=== PATIENT | male | born 1945 | race Caucasian/White ===

== ENCOUNTER 2018-03-08 21:30 | Inpatient (IN) | payer MEDICARE, BC ==
[~2018-03-08] VITALS: Ht 177.8 cm; Wt 75.4 kg
[2018-03-08] MEDS ORDERED: ACETAMINOPHEN 325 MG TAB ONE (22:58)
[2018-03-08 23:06] LABS: BASOPHILS % (AUTO) 0.5 % (0.0-5.0); EOSINOPHILS % (AUTO) 5.9 % (0.0-8.0); HEMATOCRIT 34.9 % (42-54); LYMPHOCYTES % (AUTO) 8.8 % (21.0-51.0); MEAN CORPUSCULAR HEMOGLOBIN 27.9 pg (27.0-33.0); MEAN CORPUSCULAR HGB CONC 33.1 g/dL (32.0-36.0); MEAN CORPUSCULAR VOLUME 84.3 fL (79-99); MONOCYTES % (AUTO) 9.6 % (3.0-13.0); NEUTROPHILS % (AUTO) 75.2 % (40.0-77.0); PLATELET COUNT (AUTO) 356 K/uL (130-400); RED BLOOD CELL COUNT(AUTO) 4.14 MIL/uL (4.50-6.20); RED CELL DISTRIBUTION WIDTH 13.6 % (11.0-15.5); WHITE BLOOD COUNT (AUTO) 12.7 K/uL (4.8-10.8)
[2018-03-08 23:11] LABS: CREATININE 1.2 mg/dL (0.5-1.5); POTASSIUM 3.6 mmol/L (3.5-5.1)
[2018-03-08 23:16] LABS: ALBUMIN 2.3 g/dL (3.5-5.0); BILIRUBIN,TOTAL 0.3 mg/dL (0.2-1.0); TOTAL PROTEIN, SERUM 6.4 g/dL (6.0-8.3)
[2018-03-08 23:41] LABS: APPEARANCE,URINE Cloudy (CLEAR); BILIRUBIN,URINE Small (NEGATIVE); COLOR,URINE Dark Yellow (YELLOW); GLUCOSE, URINE (UA) Negative (NEGATIVE); KETONES,URINE Trace mg/dL (NEGATIVE); LEUKOCYTE ESTERASE ,URINE Negative (NEGATIVE); NITRATE,URINE Negative (NEGATIVE); OCCULT BLOOD,URINE Negative (NEGATIVE); PROTEIN,URINE POS 1+ (NEGATIVE)
[2018-03-08 23:53] LABS: BACTERIA,URINE Rare /HPF (None Seen); MUCUS,URINE Many LPF (None Seen); SQUAMOUS EPITHELIAL CELL,UR Few /HPF (0-2); WBC,URINE 0-1 /HPF (0-1)
[2018-03-09] MEDS ORDERED: ASPIRIN 325 MG TABLET ONE (06:29)
[2018-03-09 08:57] VITALS: BP 129/73
[2018-03-09] MEDS ORDERED: HYDRALAZINE HCL 20 MG/ML VIAL IM PRN (09:00)
[2018-03-09] MEDS ORDERED: ONDANSETRON HCL 4 MG/2 ML VIAL IVP PRN (09:00)
[2018-03-09] MEDS ORDERED: ACETAMINOPHEN 325 MG TAB PO PRN ×2 (09:00→18:15)
[2018-03-09] MEDS ORDERED: AMLO5TAB2 PO (09:33)
[2018-03-09] MEDS ORDERED: LEVO100T4 PO (09:33)
[2018-03-09] MEDS ORDERED: ROSU20TA30 PO (09:33)
[2018-03-09] MEDS ORDERED: CHOL100044 PO (09:33)
[2018-03-09] MEDS ORDERED: ASPI-1197 PO (09:33)
[2018-03-09 11:00] VITALS: BP 119/73
[2018-03-09 16:38] VITALS: BP 131/74
[2018-03-09] MEDS ORDERED: ONDANSETRON HCL MDV 20ML 2 MG/ML VIAL IVP PRN (18:15)
[2018-03-09] MEDS ORDERED: HYDRALAZINE HCL 20 MG/ML VIAL IV PRN (18:15)
[2018-03-09] MEDS ORDERED: ATORVASTATIN CALCIUM 40 MG TABLET ONE (19:23)
[2018-03-09] MEDS: ATORVASTATIN CALCIUM 40 MG TABLET PO SCH (19:24)
[2018-03-09 19:25] VITALS: BP 125/84
[2018-03-09 19:27] VITALS: BP 121/63
[2018-03-10 00:08] VITALS: BP 120/65
[2018-03-10 04:25] LABS: HEMATOCRIT 31.5 % (42-54); MEAN CORPUSCULAR HEMOGLOBIN 28.3 pg (27.0-33.0); MEAN CORPUSCULAR VOLUME 83.1 fL (79-99); PLATELET COUNT (AUTO) 346 K/uL (130-400); RED BLOOD CELL COUNT(AUTO) 3.79 MIL/uL (4.50-6.20); RED CELL DISTRIBUTION WIDTH 13.2 % (11.0-15.5); WHITE BLOOD COUNT (AUTO) 11.6 K/uL (4.8-10.8)
[2018-03-10 04:35] LABS: CREATININE 1.1 mg/dL (0.5-1.5); POTASSIUM 3.6 mmol/L (3.5-5.1)
[2018-03-10 05:09] VITALS: BP 99/51
[2018-03-10] MEDS: LEVOTHYROXINE 100 MCG TABLET PO SCH (06:10)
[2018-03-10] MEDS: ASPIRIN 81MG TAB.CHEW PO SCH (07:38)
[2018-03-10] MEDS: FAMOTIDINE 20MG TAB 20 MG TAB PO SCH (07:38)
[2018-03-10] MEDS: AMLODIPINE BESYLATE 5 MG TAB PO SCH (07:39)
[2018-03-10 07:40] VITALS: BP 101/50
[2018-03-10] MEDS: Cholecalciferol (Vitamin D3) 1,000 UNIT PO SCH (09:00)
[2018-03-10 11:39] VITALS: BP 125/68
[2018-03-10 16:45] VITALS: BP 124/59
[2018-03-10 19:00] VITALS: BP 113/58
[2018-03-10] MEDS: ATORVASTATIN CALCIUM 40 MG TABLET PO SCH (20:37)
[2018-03-11] VITALS: BP 113/59
[2018-03-11 04:00] VITALS: BP 111/57
[2018-03-11 04:37] LABS: BASOPHILS % (AUTO) 0.6 % (0.0-5.0); EOSINOPHILS % (AUTO) 7.1 % (0.0-8.0); HEMATOCRIT 32.9 % (42-54); LYMPHOCYTES % (AUTO) 8.4 % (21.0-51.0); MEAN CORPUSCULAR HEMOGLOBIN 28.9 pg (27.0-33.0); MEAN CORPUSCULAR HGB CONC 34.6 g/dL (32.0-36.0); MEAN CORPUSCULAR VOLUME 83.7 fL (79-99); MONOCYTES % (AUTO) 10.4 % (3.0-13.0); NEUTROPHILS % (AUTO) 73.5 % (40.0-77.0); PLATELET COUNT (AUTO) 346 K/uL (130-400); RED BLOOD CELL COUNT(AUTO) 3.93 MIL/uL (4.50-6.20); RED CELL DISTRIBUTION WIDTH 13.4 % (11.0-15.5); WHITE BLOOD COUNT (AUTO) 11.5 K/uL (4.8-10.8)
[2018-03-11 04:43] LABS: CREATININE 1.1 mg/dL (0.5-1.5); POTASSIUM 3.6 mmol/L (3.5-5.1)
[2018-03-11 07:25] VITALS: BP 104/61
[2018-03-11] MEDS: LEVOTHYROXINE 100 MCG TABLET PO SCH (07:30)
[2018-03-11] MEDS: AMLODIPINE BESYLATE 5 MG TAB PO SCH (09:00)
[2018-03-11] MEDS: Cholecalciferol (Vitamin D3) 1,000 UNIT PO SCH (09:00)
[2018-03-11] MEDS: ASPIRIN 81MG TAB.CHEW PO SCH (10:57)
[2018-03-11] MEDS: FAMOTIDINE 20MG TAB 20 MG TAB PO SCH (10:58)
[2018-03-11 11:14] VITALS: BP 115/71
[2018-03-11] MEDS ORDERED: CLOPIDOGREL BISULFATE 75 MG TAB PO SCH (13:00)
== END 2018-03-11 15:50 | disposition home or self-care (01) | DRG 123 ==
LOC: EDH 21:30 → EDHIP 03-09 07:16 → 2DH 03-09 09:02
PROVIDERS: ADMIT Internal Medicine Nephrology; ATTEND Internal Medicine Nephrology
DX: H53.2 Diplopia (principal); H54.62 Unqualified visual loss, left eye, normal vision right eye; I10 Essential (primary) hypertension; M19.90 Unspecified osteoarthritis, unspecified site; E03.9 Hypothyroidism, unspecified; E78.5 Hyperlipidemia, unspecified; H53.8 Other visual disturbances; M81.0 Age-related osteoporosis without current pathological fracture; Z98.42 Cataract extraction status, left eye; Z98.41 Cataract extraction status, right eye; Z87.01 Personal history of pneumonia (recurrent); Z79.2 Long term (current) use of antibiotics; Z82.49 Family history of ischemic heart disease and other diseases of the circulatory system; Z83.3 Family history of diabetes mellitus; Z83.49 Family history of other endocrine, nutritional and metabolic diseases
CPT/HCPCS: 36415; 70450; 70544; 70547; 70551; 71046; 80048; 80053; 80061; 81001; 85025; 85027; 86757; 93005; 93306; 93880

== ENCOUNTER → 2019-06-27 | Outpatient (CLI) | payer MEDICARE ==
[~2019-06-27] MED LIST: AMLO5TAB9 PO; ASPI-1197 PO; CHOL100044 PO; CLOP75TA14 PO; LEVO100T4 PO; ROSU20TA31 PO
== END | disposition home or self-care (01) ==
LOC: RAH 14:16
PROVIDERS: ATTEND Orthopaedic Surgery
DX: M51.36 Other intervertebral disc degeneration, lumbar region (principal)
CPT/HCPCS: 72148

== ENCOUNTER → 2023-03-09 | Outpatient (CLI) | payer MEDICARE ==
[~2023-03-09] MED LIST changes: +AMLO-257 PO; -AMLO5TAB9 PO; +CLOP-31 PO; -CLOP75TA14 PO; -ROSU20TA31 PO; +ROSU20TA73 PO
[2023-03-09 12:00] LABS: CREATININE 1.4 mg/dL (0.5-1.5); PHOSPHORUS 3.8 mg/dL (2.5-4.9); POTASSIUM 3.9 mmol/L (3.5-5.1)
== END | disposition home or self-care (01) ==
LOC: LAB 10:51
PROVIDERS: ATTEND Internal Medicine Cardiovascular Disease
DX: I49.3 Ventricular premature depolarization (principal)
CPT/HCPCS: 36415; 80048; 83735; 84100